=== PATIENT | male | born 1950 ===

== ENCOUNTER 2017-04-08 10:06 | Emergency (ER) | payer OTHER ==
[2017-04-08 10:22] VITALS: BP 118/66; PULSE 75; RESP 16; TEMP 97; O2SAT 100
--- NOTE | 2017-04-08 10:48 | ED PDOC ---
Lower Extremity Pain/Injury Chief Complaint (Provider): LE pain History Per: Patient Onset/Duration Of Symptoms: Days Current Symptoms Are (Timing): Still Present Pain Scale Rating Of: 6 Additional Complaint(s): 66 y/o M with no significant PMhx presents to ED c/o Leg pain for the past week. Pain is more in the posterolateral aspect of the L/knee but also posterolateral L/leg and foot. Also c/o numbness in the area of the pain. Denies back pain, vomiting, nausea, recent trauma, urinary or feces incontinence. Patient has hx of left leg Fx with internal fixation around 20 years ago. Denies Hx of chronic leg pain after Sx. Denies recent travel Hx. Patient works [employer] Pain is constant and worsen with movement or ambulation. Gait is limited because of the pain. He has not taken any pain meds - Ankle/Foot Currently Unable To: Bend Or Move <Rolando Kwon - Last Filed: 04/08/17 12:58> <Austen Moss - Last Filed: 04/08/17 14:55> Time Seen by Provider: 04/08/17 10:24 Chief Complaint (Nursing): Lower Extremity Problem/Injury Supervising Attending Note - Supervising Attending Note The Documented history was done by the: Physician Food Processing Chemist, Attending Physician The documented physical exam was done by the: Physician Food Processing Chemist, Attending Physician The documented procedures were done by the: Physician Food Processing Chemist, Attending Physician - Attestation: I have personally seen and examined this patient.: Yes I have fully participated in the care of the patient.: Yes I have reviewed all pertinent clinical information, including history, physical exam and plan: Yes <Austen Moss - Last Filed: 04/08/17 14:55> Past Medical History Vital Signs: Last Vital Signs Temp 97.0 F L 04/08/17 10:19 Pulse 75 04/08/17 10:19 Resp 16 04/08/17 10:19 BP 118/66 04/08/17 10:19 Pulse Ox 100 04/08/17 10:19 - Medical History PMH: No Chronic Diseases - Surgical History Other surgeries: Leg Fx - Family History Family History: States: Unknown Family Hx - Social History Current smoker - smoking cessation education provided: Yes (Social) Alcohol: Social Drugs: Denies <Rolando Kwon - Last Filed: 04/08/17 12:58> Vital Signs: Last Vital Signs Temp 97.0 F L 04/08/17 10:19 Pulse 75 04/08/17 10:19 Resp 16 04/08/17 10:19 BP 118/66 04/08/17 10:19 Pulse Ox 100 04/08/17 12:58 <Austen Moss Adonis - Last Filed: 04/08/17 14:55> - Home Medications Home Medications: Ambulatory Orders Medication Instructions Recorded Ondansetron [Zofran] 4 mg PO Q6H PRN #10 tab 11/12/15 Naproxen 500 mg PO BID #14 tab 04/08/17 - Allergies Allergies/Adverse Reactions: Allergies Allergy/AdvReac Type Severity Reaction Status Date / Time No Known Allergies Allergy Verified 11/12/15 12:12 Wells Criteria for PE - Wells Criteria for Pulmonary Embolism P.E is #1 Diagnosis, or Equally Likely: No Heart Rate >100: No Immobilization at least 3 days;Surgery previous 4 weeks: No Previous, objectively diagnosed PE or DVT: No Hemoptysis: No Malignancy w/treatment within 6 months, or palliative: No Total Score: 0 <Rolando Kwon - Last Filed: 04/08/17 12:58> Review of Systems ROS Statement: Except As Marked, All Systems Reviewed And Found Negative Musculoskeletal: Positive for: Leg Pain, Foot Pain Neurological: Positive for: Numbness <Rolando Kwon - Last Filed: 04/08/17 12:58> Physical Exam - Reviewed Nursing Documentation Reviewed: Yes Vital Signs Reviewed: Yes - Physical Exam Appears: Positive for: Uncomfortable Head Exam: Positive for: ATRAUMATIC, NORMAL INSPECTION Skin: Positive for: Normal Color, Warm Eye Exam: Positive for: EOMI, PERRL Cardiovascular/Chest: Positive for: Regular Rate, Rhythm. Negative for: Gallop Respiratory: Positive for: Normal Breath Sounds. Negative for: Crackles, Wheezing Gastrointestinal/Abdominal: Positive for: Soft. Negative for: Tenderness, Distended Back: Positive for: Normal Inspection. Negative for: Vertebral Tenderness Extremity: Positive for: Tenderness (lateral aspect of the L/knee and leg), Capillary Refill, Other (ROM limited in the L/knee due to pain and stiffness. Crepitus +. Straight leg test negative). Negative for: Normal ROM, Pedal Edema , Calf Tenderness, Swelling Neurologic/Psych: Positive for: Alert, Oriented. Negative for: Motor/Sensory Deficits <Rolando Kwon - Last Filed: 04/08/17 12:58> - ECG O2 Sat by Pulse Oximetry: 100 - Progress ED Course And Treament: Patient received toradol 15mg IM with markedly improvement of pain. US of LE negative for DVT. Xrays shows O/A no Fx. Patient will be DC home with PO naproxen <Rolando Kwon - Last Filed: 04/08/17 12:58> Medical Decision Making Medical Decision Makin66 y/o M with no significant PMHx presents for LE pain Leg an Knee pain Osteoarthritis vs tendonitis vs neuropathy r/o DVT LE Dupplex L/Knee Xray Toradol 15mg once IM <Rolando Kwon - Last Filed: 04/08/17 12:58> Disposition - Patient ED Disposition Is Patient to be Admitted: No - Disposition Disposition: Routine/Home Disposition Time: 12:55 <Rolando Kwon - Last Filed: 04/08/17 12:58> Doctor Will See Patient In The: Office Counseled Patient/Family Regarding: Studies Performed, Diagnosis, Need For Followup <Austen Moss - Last Filed: 04/08/17 14:55> - Clinical Impression Clinical Impression: Osteoarthritis, Leg pain, left - Disposition Referrals: [facility] [Outside] Condition: IMPROVED Additional Instructions: Follow up with your PCP in 2-3 days. Prescriptions: Naproxen 500 mg PO BID #14 tab Instructions: Leg Pain (ED) Forms: [employer] (Venezuelan)
--- NOTE | 2017-04-08 11:14 | RAD ---
PROCEDURE: Left Knee Radiographs. HISTORY: Pain. COMPARISON: Left knee 11/11/2009. FINDINGS: BONES: No acute fracture or dislocation identified. Prominent joint space narrowing the medial femorotibial compartment is worsened with osteophyte development again noted at the medial and lateral femorotibial compartments as well as the patellofemoral articulation, also increased in the interval. No acute fracture or dislocation. No suspicious lytic or blastic change. JOINTS: Normal. No osteoarthritis. JOINT EFFUSION: A small subdural bursa effusion is suggested. OTHER FINDINGS: None. IMPRESSION: Interval advanced osteoarthritis in all 3 compartments, worsened in the interval compare to 11/11/2009.
--- NOTE | 2017-04-08 12:43 | US ---
HISTORY: LE pain . PRIORS: None. FINDINGS: 2-D, color and duplex Doppler analysis of the lower extremity venous circulation using routine protocol from the femoral veins through the popliteal veins. Venous compressibility: Normal. Flow and augmentation patterns: Normal. Visualized veins upper third of calf: Normal. Weldon cyst: None. IMPRESSION: No sonographic or Doppler evidence for DVT in left lower extremity.
== END 2017-04-08 13:18 | disposition home or self-care (01) ==
LOC: H.ER 10:06
DX: M19.079 Primary osteoarthritis, unspecified ankle and foot (principal)

== ENCOUNTER 2017-06-21 09:01 | Emergency (ER) | payer OTHER, SELFPAY ==
[2017-06-21 09:06] VITALS: BMI 30.9
[2017-06-21 09:07] VITALS: BP 131/70; PULSE 66; RESP 16; TEMP 98; O2SAT 98
[2017-06-21] MEDS ORDERED: Oxycodone/Acetaminophen 5/325 mg Tab PO STA (09:29)
[2017-06-21] MEDS ORDERED: Oxycodone/Acetaminophen 5/325 mg Tab ONE (09:46)
--- NOTE | 2017-06-21 10:16 | ED PDOC ---
Lower Extremity Pain/Injury Time Seen by Provider: 06/21/17 09:10 Chief Complaint (Nursing): Lower Extremity Problem/Injury Chief Complaint (Provider): Left knee pain History Per: Patient History/Exam Limitations: no limitations Onset/Duration Of Symptoms: Days (x 2 weeks) Current Symptoms Are (Timing): Still Present Additional Complaint(s): Lit is a 67 y/o male who presents to the ED complaining of left knee pain for 2 weeks. He reports having the same pain before but never followed up. Pain is worsened with ambulation and especially going up and down steps. He denies any associated injury or trauma. No paresthesias or weakness. PMD: Provider TBD Past Medical History Reviewed: Historical Data, Nursing Documentation, Vital Signs Vital Signs: Last Vital Signs Temp 98.0 F 06/21/17 09:07 Pulse 66 06/21/17 09:07 Resp 16 06/21/17 09:07 BP 131/70 06/21/17 09:07 Pulse Ox 98 06/21/17 09:07 - Medical History PMH: Arthritis, Chronic Pain Denies: Chronic Kidney Disease - Surgical History Other surgeries: Left leg surgery - Family History Family History: States: Unknown Family Hx - Social History Current smoker - smoking cessation education provided: No Alcohol: None Drugs: Denies - Home Medications Home Medications: Ambulatory Orders Medication Instructions Recorded Acetaminophen with Codeine 1 tab PO Q6H PRN #10 tab 06/21/17 [Tylenol with Codeine No. 3 300 mg-30 mg] Naproxen [Naprosyn] 500 mg PO BID PRN #15 tablet 06/21/17 - Allergies Allergies/Adverse Reactions: Allergies Allergy/AdvReac Type Severity Reaction Status Date / Time No Known Allergies Allergy Verified 11/12/15 12:12 Review of Systems ROS Statement: Except As Marked, All Systems Reviewed And Found Negative Musculoskeletal: Positive for: Leg Pain (Left knee) Physical Exam - Reviewed Nursing Documentation Reviewed: Yes Vital Signs Reviewed: Yes - Physical Exam Appears: Positive for: Non-toxic, No Acute Distress Head Exam: Positive for: ATRAUMATIC, NORMAL INSPECTION, NORMOCEPHALIC Skin: Positive for: Normal Color, Warm, Dry Eye Exam: Positive for: EOMI, Normal appearance, PERRL Neck: Positive for: Normal, Painless ROM Cardiovascular/Chest: Positive for: Regular Rate, Rhythm. Negative for: Murmur Respiratory: Positive for: Normal Breath Sounds. Negative for: Respiratory Distress Extremity: Positive for: Other (Decreased ROM at left knee due to pain). Negative for: Normal ROM, Tenderness, Calf Tenderness, Deformity, Swelling Neurologic/Psych: Positive for: Alert, Oriented. Negative for: Motor/Sensory Deficits - ECG O2 Sat by Pulse Oximetry: 98 (RA) Pulse Ox Interpretation: Normal - Radiology X-Ray: Interpreted by Me, Viewed By Me X-Ray Interpretation: No Acute Disease Medical Decision Making Medical Decision Making: Time: 9:29 Initial Plan: --X-Ray Left Knee 3 views --Percocet 1 tab PO --Pending reevaluation Clinical Impression: Chronic knee pain Time: 10:40 Upon provider reevaluation patient is medically stable, and requires no further treatment in the ED at this time. Patient will be discharged with Rx for Naprosyn and Tylenol with codeine. Counseling was provided and all questions were answered regarding diagnosis and need for follow up with orthopedist. There is agreement to discharge plan. Return if symptoms persist or worsen. Scribe Attestation: Documented by Rayna Qureshi, acting as a scribe for Sabra Shepard MD Provider Scribe Attestation: All medical record entries made by the Scribe were at my direction and personally dictated by me. I have reviewed the chart and agree that the record accurately reflects my personal performance of the history, physical exam, medical decision making, and the department course for this patient. I have also personally directed, reviewed, and agree with the discharge instructions and disposition. Disposition - Clinical Impression Clinical Impression: Chronic knee pain - Patient ED Disposition Is Patient to be Admitted: No Counseled Patient/Family Regarding: Studies Performed, Diagnosis, Need For Followup, Rx Given - Disposition Referrals: [facility] [Outside] Maci Guerrero MD [Staff Provider] - Disposition: Routine/Home Disposition Time: 10:40 Condition: STABLE Prescriptions: Acetaminophen with Codeine [Tylenol with Codeine No. 3 300 mg-30 mg] 1 tab PO Q6H PRN #10 tab PRN Reason: Pain, Severe (8-10) Naproxen [Naprosyn] 500 mg PO BID PRN #15 tablet PRN Reason: Pain, Moderate (4-7) Instructions: Knee Pain (ED), Arthralgia (ED) Forms: [employer] (Botswanan) Print Language: PERSIAN
--- NOTE | 2017-06-21 13:01 | RAD ---
HISTORY: Knee pain COMPARISON: No prior FINDINGS: BONES: Normal. No fracture. JOINTS: Degenerative changes with compartmental narrowing and marginal spur formation. SOFT TISSUE: Normal. OTHER FINDINGS: None . IMPRESSION: No acute fracture.
== END 2017-06-21 11:03 | disposition home or self-care (01) ==
LOC: H.ER 09:01
DX: M25.562 Pain in left knee (principal); G89.4 Chronic pain syndrome

== ENCOUNTER 2017-10-06 11:37 | Emergency (ER) | payer SELFPAY ==
[2017-10-06 11:37] VITALS: BMI 30.9
[2017-10-06 12:39] VITALS: BP 149/85; PULSE 75; RESP 18; TEMP 99.5; O2SAT 96
--- NOTE | 2017-10-06 13:19 | ED PDOC ---
Lower Extremity Pain/Injury Time Seen by Provider: 10/06/17 13:16 Chief Complaint (Nursing): Lower Extremity Problem/Injury Chief Complaint (Provider): BILATERAL KNEE PAIN History Per: Patient (67 Y/O MALE HERE FOR EVALUATION OF BILATERAL KNEE PAIN L> R ONGOING SINCE 04/2017. STATES HE WAS GIVEN MEDICATIONS THAT HELPED HIM BUT NOTES INCREASING PAIN WITH WALKING AND DOWN STAIRS AT WORK.) Past Medical History Reviewed: Historical Data, Nursing Documentation, Vital Signs Vital Signs: Last Vital Signs Temp 99.5 F 10/06/17 12:36 Pulse 75 10/06/17 12:36 Resp 18 10/06/17 12:36 BP 149/85 10/06/17 12:36 Pulse Ox 96 10/06/17 12:36 - Medical History PMH: Arthritis, Chronic Pain Denies: Chronic Kidney Disease - Family History Family History: States: Unknown Family Hx - Home Medications Home Medications: Ambulatory Orders Medication Instructions Recorded Acetaminophen with Codeine 1 tab PO Q6H PRN #10 tab 06/21/17 [Tylenol with Codeine No. 3 300 mg-30 mg] Naproxen [Naprosyn] 500 mg PO BID PRN #15 tablet 06/21/17 Naproxen 1 tab PO Q12 PRN #14 tab 10/06/17 - Allergies Allergies/Adverse Reactions: Allergies Allergy/AdvReac Type Severity Reaction Status Date / Time No Known Allergies Allergy Verified 10/06/17 12:35 Review of Systems ROS Statement: Except As Marked, All Systems Reviewed And Found Negative Musculoskeletal: Positive for: Other (KNEE PAIN) Physical Exam - Reviewed Nursing Documentation Reviewed: Yes Vital Signs Reviewed: Yes - Physical Exam Appears: Positive for: Well, Non-toxic, No Acute Distress Head Exam: Positive for: ATRAUMATIC, NORMAL INSPECTION, NORMOCEPHALIC Skin: Positive for: Normal Color, Warm, DRY Eye Exam: Positive for: EOMI, Normal appearance, PERRL ENT: Positive for: Normal ENT Inspection Neck: Positive for: Normal, Painless ROM Cardiovascular/Chest: Positive for: Regular Rate, Rhythm Respiratory: Positive for: CNT, Normal Breath Sounds Gastrointestinal/Abdominal: Positive for: Normal Exam, Bowel Sounds, Soft Back: Positive for: Normal Inspection Extremity: Positive for: Normal ROM Neurologic/Psych: Positive for: Alert, Oriented - ECG O2 Sat by Pulse Oximetry: 96 Disposition - Clinical Impression Clinical Impression: Knee pain, bilateral - Patient ED Disposition Is Patient to be Admitted: No - Disposition Referrals: [facility] [Outside] Disposition: Routine/Home Disposition Time: 13:18 Condition: FAIR Prescriptions: Naproxen 1 tab PO Q12 PRN #14 tab PRN Reason: Pain, Moderate (4-7) Instructions: Arthritis (ED) Forms: [facility] (Spanish), [facility] ED School/Work Excuse Print Language: PAKISTANI
== END 2017-10-06 14:20 | disposition home or self-care (01) ==
LOC: H.ER 11:37
DX: G89.29 Other chronic pain (principal)

== ENCOUNTER 2017-12-14 10:41 | Emergency (ER) | payer SELFPAY ==
[2017-12-14 10:45] VITALS: BMI 32.7
[2017-12-14 10:46] VITALS: BP 128/73; PULSE 62; RESP 20; TEMP 97.9; O2SAT 97
--- NOTE | 2017-12-14 11:16 | ED PDOC ---
Lower Extremity Pain/Injury Time Seen by Provider: 12/14/17 10:59 Chief Complaint (Nursing): Lower Extremity Problem/Injury Additional Complaint(s): 67 y/o M p/w L leg pain x 8 months. Patient with 3 previous visits for this same pain. Patient states he has taken medication in the past that he was prescribed here but he ran out and has not taken anything since. States the medication helps. On initial visit, he had negative XR and doppler. Denies any new pain, trauma, fever, weakness, chest pain, or dyspnea. Past Medical History Vital Signs: Last Vital Signs Temp 97.9 F 12/14/17 10:45 Pulse 62 12/14/17 10:45 Resp 20 12/14/17 10:45 BP 128/73 12/14/17 10:45 Pulse Ox 97 12/14/17 10:45 - Medical History PMH: Arthritis, Chronic Pain Denies: Chronic Kidney Disease - Family History Family History: States: Unknown Family Hx - Home Medications Home Medications: Ambulatory Orders Medication Instructions Recorded Naproxen [Naprosyn] 500 mg PO Q12H #28 tablet 12/14/17 - Allergies Allergies/Adverse Reactions: Allergies Allergy/AdvReac Type Severity Reaction Status Date / Time No Known Allergies Allergy Verified 10/06/17 12:35 Review of Systems ROS Statement: Except As Marked, All Systems Reviewed And Found Negative Constitutional: Negative for: Fever Cardiovascular: Negative for: Chest Pain Physical Exam - Physical Exam Comments: Gen: NAD Head: NC/AT Eyes: No scleral icterus ENT: MMM Neck: No midline tenderness Chest: No tenderness CV: Regular rate Lungs: CTA b/l Abd: Soft Back: No midline tenderness Extremities: L knee without focal tendernss, no tib/fib tenderness. Old surgical scar. Skin: No cellulitis Neuro: Motor 5/5 x 4, sensation to light touch intact - ECG O2 Sat by Pulse Oximetry: 97 Medical Decision Making Medical Decision Making: Previous charts reviewed, was prescribed Naproxen. Will prescribe same, advised to f/u with Ortho. Disposition - Clinical Impression Clinical Impression: Leg pain, left - Patient ED Disposition Is Patient to be Admitted: No - Disposition Referrals: Maci Guerrero MD [Staff Provider] - [facility] [Outside] Disposition: Routine/Home Disposition Time: 11:24 Condition: STABLE Prescriptions: Naproxen [Naprosyn] 500 mg PO Q12H #28 tablet Instructions: Knee Pain
== END 2017-12-14 11:45 | disposition home or self-care (01) ==
LOC: H.ER 10:41
DX: M79.605 Pain in left leg (principal)
CPT/HCPCS: 96372; 99282; J1885

== ENCOUNTER 2018-05-23 14:10 | Emergency (ER) | payer SELFPAY ==
[2018-05-23 14:10] VITALS: BMI 32.7
[2018-05-23 14:25] VITALS: O2SAT 97
[2018-05-23] MEDS ORDERED: Sodium Chloride 0.9% 500 ML IV STA (14:42)
--- NOTE | 2018-05-23 15:14 | ED PDOC ---
- Laboratory Results Result Diagrams: 05/23/18 15:13 05/23/18 15:13 - ECG O2 Sat by Pulse Oximetry: 97 (RA) Pulse Ox Interpretation: Normal Medical Decision Making Medical Decision Making: Time: 1500 Patient was endorsed to me by Dr. Guaman pending ER workup reevaluation and final ER disposition. [address] unremarkable. Talked to patient at length myself and with process improvement engineer. Pt repeatedly reports sudden onset blurry vision to BOTH eyes yesterday at 9am, but LEFT much worse than RIGHT. He is unable to make out anything but light and blurry shapes in LEFT eye. Denies eye pain or foreign body sensation. Visual acuity with corrector improves only LEFT eye. Limited funduscopic exam demonstrates normal light reflex and yellow fundus. DW Dr Guevara presentation and findings and will followup at his office on Friday 10am. Considered CRAO but pt now >24 hours post vision loss and pt has vision decreased in both eyes, which is not c/w CRAO. ASA given anyway due to low side effect profile. Scribe Attestation: Documented by Veronique Robert, acting as a scribe for Li Tiwari MD Provider Scribe Attestation: All medical record entries made by the Scribe were at my direction and personally dictated by me. I have reviewed the chart and agree that the record accurately reflects my personal performance of the history, physical exam, medical decision making, and the department course for this patient. I have also personally directed, reviewed, and agree with the discharge instructions and disposition. Disposition - Clinical Impression Clinical Impression: Vision blurred - POA Present On Arrival: None - Disposition Referrals: Haim Guevara MD [Staff Provider] - 05/25/18 9:00 am Disposition: Routine/Home Disposition Time: 17:00 Condition: FAIR Additional Instructions: HAY MUCHAS RAZONES POR LAS QUE PODRIAS PERDER TU VISION. ES MUY IMPORTANT QUE VISITE A LA ESPECIALISTA EL LUNES PARA SAYDA EVALUACION ADICIONAL. NO CONDUZCA NI OPERE MACUINARIA PESADA HASTA QUE KARLA AL ESPECIALISTA. Prescriptions: Aspirin 325 mg PO DAILY #30 tab
[2018-05-23 15:17] LABS: BASO % 0.9 % (0.0-2.0); EOS # 0.1 K/uL (0.0-0.7); EOS % 2.1 % (0.0-4.0); HEMOGLOBIN 13.4 g/dL (12.0-18.0); LYMPH # 0.9 K/uL (1.0-4.3); LYMPH % 21.5 % (20.0-40.0); MEAN CELL VOLUME 93.3 fl (80.0-94.0); MEAN CORPUSCULAR HEMOGLOBIN 31.5 pg (27.0-31.0); MEAN CORPUSCULAR HGB CONC 33.8 g/dL (33.0-37.0); MEAN PLATELET VOLUME 9.7 fl (7.2-11.7); MONO # 0.3 K/uL (0.0-0.8); MONO % 6.9 % (0.0-10.0); NEUT # 2.9 K/uL (1.8-7.0); NEUT % 68.6 % (50.0-75.0); RBC 4.25 Mil/uL (4.40-5.90); WHITE BLOOD COUNT 4.3 K/uL (4.8-10.8)
--- NOTE | 2018-05-23 15:19 | ED PDOC ---
HPI: Eye Injury/Pain History Per: Roving Frame Tender History/Exam Limitations: no limitations Onset/Duration Of Symptoms: Days (9 am 1 day prior (abt 29 hours)) Current Symptoms Are (Timing): Still Present Severity: Mild Associated Symptoms: Decreased Vision Additional Complaint(s): 68-year-old male with PMH of arthritis of left knee presents to the ED with a 1 day history of blurry vision and headache. The headache began yesterday morning at 9am (05/22, 29 hours prior to presentation), pain is diffuse, is relieved with tylenol, and waxes and wanes. Blurry vision is bilateral but worse in the left, as he reports total loss of vision. At baseline patient requires glasses for reading. He also complains of chronic left knee pain. He denies nausea, vomiting, syncope, loss of consciousness, slurred speech, weakness, tingling, numbness, photosensitivity, aura, constipation and diarrhea. PCP: None PMH: Arthritis PSHx: Knee, Left FHx: Unknown Allergy: None Meds: Naproxen <Juliann Nuno - Last Filed: 05/23/18 17:41> <Li Tiwari - Last Filed: 05/24/18 23:58> Time Seen by Provider: 05/23/18 14:27 Chief Complaint (Nursing): Eye Problem Supervising Attending Note - Supervising Attending Note The Documented history was done by the: Physician Web Press Roll Tender, Attending Physician The documented physical exam was done by the: Physician Web Press Roll Tender, Attending Physician - Attestation: I have personally seen and examined this patient.: Yes I have fully participated in the care of the patient.: Yes I have reviewed all pertinent clinical information, including history, physical exam and plan: Yes <Li Tiwari - Last Filed: 05/24/18 23:58> Past Medical History Vital Signs: Last Vital Signs Temp 98.2 F 05/23/18 14:22 Pulse 67 05/23/18 14:22 Resp 18 05/23/18 14:22 BP 120/57 L 05/23/18 14:22 Pulse Ox 97 05/23/18 15:13 - Medical History PMH: Arthritis, Chronic Pain Denies: Chronic Kidney Disease - Surgical History Other surgeries: L knee - Family History Family History: States: Unknown Family Hx - Social History Current smoker - smoking cessation education provided: No Alcohol: None Drugs: Denies <GalileoAngelitoJuliann alicea - Last Filed: 05/23/18 17:41> Vital Signs: Last Vital Signs Temp 97.9 F 05/23/18 17:37 Pulse 62 05/23/18 17:37 Resp 16 05/23/18 17:37 BP 136/76 05/23/18 17:37 Pulse Ox 97 05/24/18 23:40 <Li Tiwari - Last Filed: 05/24/18 23:58> - Home Medications Home Medications: Ambulatory Orders Medication Instructions Recorded Naproxen [Naprosyn] 500 mg PO Q12H #28 tablet 12/14/17 Aspirin 325 mg PO DAILY #30 tab 05/23/18 - Allergies Allergies/Adverse Reactions: Allergies Allergy/AdvReac Type Severity Reaction Status Date / Time No Known Allergies Allergy Verified 05/23/18 14:22 Review of Systems Constitutional: Negative for: Fever, Chills, Sweats, Weakness, Weight loss Eyes: Positive for: Vision Change. Negative for: Pain Cardiovascular: Negative for: Chest Pain Respiratory: Negative for: Cough, Shortness of Breath Gastrointestinal: Negative for: Nausea, Vomiting, Abdominal Pain, Diarrhea, Constipation Genitourinary Male: Negative for: Dysuria, Frequency Musculoskeletal: Positive for: Leg Pain (left knee). Negative for: Neck Pain Skin: Negative for: Rash Neurological: Positive for: Headache. Negative for: Weakness, Numbness, Incoordination, Change in Speech, Confusion, Seizures, Altered Mental Status, Dizziness <GalileoAngelitoJose A aliceaJuliann - Last Filed: 05/23/18 17:41> Physical Exam - Physical Exam Appears: Positive for: Non-toxic, No Acute Distress Head Exam: Positive for: ATRAUMATIC Eye Exam: Positive for: Normal appearance, EOMI, PERRL. Negative for: Periorbital swelling, Periorbital tenderness, Conjunctival injection, Scleral icterus Neck: Positive for: Normal, Painless ROM Cardiovascular/Chest: Positive for: Regular Rate, Rhythm. Negative for: JVD, Murmur Respiratory: Positive for: Normal Breath Sounds. Negative for: Wheezing Gastrointestinal/Abdominal: Positive for: Normal Exam, Bowel Sounds, Soft. Negative for: Tenderness Extremity: Positive for: Normal ROM. Negative for: Tenderness Neurologic/Psych: Positive for: Alert, return to factory clerk II-XII, Oriented. Negative for: Motor/Sensory Deficits <Juliann Nuno - Last Filed: 05/23/18 17:41> - Laboratory Results Result Diagrams: 05/23/18 15:13 05/23/18 15:13 - ECG O2 Sat by Pulse Oximetry: 97 (RA) - Progress ED Course And Treament: CBC: WNL BMP: WNL Troponin I: negative x1 CT Head: Normal CT Neck: Normal Visual Acuity: Right eye: 20/70 corrected (20/100 without correction); Left: no vision Discussed with Dr. Guevara (Optho). No further emergent management necessary and he will see patient on Friday in office. <Juliann Nuno - Last Filed: 05/23/18 17:41> - Laboratory Results Result Diagrams: 05/23/18 15:13 05/23/18 15:13 <Li Tiwari - Last Filed: 05/24/18 23:58> Disposition - Disposition Disposition Time: 17:41 <Juliann Nuno - Last Filed: 05/23/18 17:41> <Li Tiwari - Last Filed: 05/24/18 23:58> - Clinical Impression Clinical Impression: Vision blurred - Disposition Referrals: Haim Guevara MD [Staff Provider] - 05/25/18 9:00 am Condition: FAIR Additional Instructions: HAY MUCHAS RAZONES POR LAS QUE PODRIAS PERDER TU VISION. ES MUY IMPORTANT QUE VISITE A LA ESPECIALISTA EL LUNES PARA SAYDA EVALUACION ADICIONAL. NO CONDUZCA NI OPERE MACUINARIA PESADA HASTA QUE KARLA AL ESPECIALISTA. Prescriptions: Aspirin 325 mg PO DAILY #30 tab
--- NOTE | 2018-05-23 15:26 | CT ---
Date of service: 05/23/2018 PROCEDURE: CT HEAD WITHOUT CONTRAST. HISTORY: headache COMPARISON: None available. TECHNIQUE: Axial computed tomography images were obtained through the head/brain without intravenous contrast. Radiation dose: Total exam DLP = mGy-cm. This CT exam was performed using one or more of the following dose reduction techniques: Automated exposure control, adjustment of the mA and/or kV according to patient size, and/or use of iterative reconstruction technique. FINDINGS: HEMORRHAGE: No intracranial hemorrhage. BRAIN: No mass effect or edema. No atrophy or chronic microvascular ischemic changes. VENTRICLES: Unremarkable. No hydrocephalus. CALVARIUM: Unremarkable. PARANASAL SINUSES: Unremarkable as visualized. No significant inflammatory changes. MASTOID AIR CELLS: Unremarkable as visualized. No inflammatory changes. OTHER FINDINGS: None. IMPRESSION: Normal CT of the Head.
[2018-05-23 15:27] LABS: ALB/GLOB RATIO 1.2 (1.0-2.1); ALBUMIN 3.9 g/dL (3.5-5.0); ALT/SGPT 49 U/L (21-72); AST/SGOT 46 U/L (17-59); BLOOD UREA NITROGEN 15 mg/dl (9-20); CALCIUM 8.7 mg/dL (8.4-10.2); GFR NON-AFRICAN AMERICAN > 60
--- NOTE | 2018-05-23 15:28 | CT ---
Date of service: 05/23/2018 PROCEDURE: CT Cervical Spine without contrast HISTORY: neck pain COMPARISON: None available. TECHNIQUE: Axial computed tomography images were obtained of the cervical spine without the use of intravenous contrast. Coronal and sagittal reformatted images were created and reviewed. Radiation dose: Total exam DLP = mGy-cm. This CT exam was performed using one or more of the following dose reduction techniques: Automated exposure control, adjustment of the mA and/or kV according to patient size, and/or use of iterative reconstruction technique. FINDINGS: VERTEBRAE: No fracture. Normal alignment. No destructive bony lesion. DISCS/SPINAL CANAL/NEURAL FORAMINA: Multilevel degenerative disc disease and spondylosis. PARASPINAL SOFT TISSUES: Unremarkable. OTHER FINDINGS: None. IMPRESSION: No fracture.
--- NOTE | 2018-05-23 16:42 | RAD ---
Date of service: 05/23/2018 HISTORY: blurry vision COMPARISON: No prior. FINDINGS: LUNGS: No active pulmonary disease. PLEURA: No significant pleural effusion identified, no pneumothorax apparent. CARDIOVASCULAR: Normal. OSSEOUS STRUCTURES: No significant abnormalities. VISUALIZED UPPER ABDOMEN: Normal. OTHER FINDINGS: None. IMPRESSION: No active disease.
[2018-05-23 17:39] VITALS: BP 136/76; PULSE 62; RESP 16; TEMP 97.9
--- NOTE | 2018-05-23 19:57 | CARD ---
APPROVED REPORT Date of service: 05/23/2018 EKG Measurement Heart [id number] <Conclusion> Normal sinus rhythm Moderate voltage criteria for LVH, may be normal variant Borderline ECG
== END 2018-05-23 17:37 | disposition home or self-care (01) ==
LOC: H.ER 14:10
DX: H53.8 Other visual disturbances (principal); G89.29 Other chronic pain; Z79.82 Long term (current) use of aspirin
CPT/HCPCS: 70450; 71045; 72125; 80053; 83735; 84100; 84484; 85025; 93005; 96360; 99285; J2765; J7040